=== PATIENT | male | born 1970 | race Two or more races ===

== ENCOUNTER 2016-06-06 19:37 | Emergency (ER) | payer SELFPAY ==
[~2016-06-06] VITALS: Ht 175.3 cm; Wt 90.7 kg
[2016-06-06] MEDS ORDERED: SODIUM CHLORIDE 0.9% 1,000 ML IV ONE (20:00)
[2016-06-06 20:12] LABS: Basophils # (auto) 0.1 uL; Basophils % (auto) 0.7 % (0.0-2.0); DEFINITIVE VIEW TRANSMISSION; Eosinophils # (auto) 0.1 uL; Eosinophils % (auto) 1.2 % (0.0-7.0); Hemoglobin 15.3 g/dL (13.5-17.5); Lymphocytes # (auto) 4.4 uL; Lymphocytes % (auto) 42.9 % (10.0-50.0); Mean Corpuscular Hemoglobin 26.9 pg (28.0-32.0); Mean Corpuscular Hgb Conc. 33.9 g/dL (32.0-36.0); Mean Corpuscular Volume 79.3 fL (80.0-100.0); Mean Platelet Volume 8.7 fL (7.4-10.4); Monocytes # (auto) 0.6 uL; Monocytes % (auto) 6.2 % (0.0-12.0); Platelet Count (auto) 370 10^3/uL (140-450); Red Cell Distribution Width 13.3 % (11.6-16.0); White Blood Cell 10.3 10^3/uL (4.4-10.8)
[2016-06-06] MEDS ORDERED: LORazepam 2MG/ML-1ML VIAL IV ONE (20:30)
[2016-06-06] MEDS ORDERED: HALOPERIDOL LACTATE 5 MG/ML INJ VIAL IM ONE (20:30)
[2016-06-06] MEDS ORDERED: diphenhdrAMINE HCL 50 MG/1 ML VL IV ONE (20:30)
[2016-06-06 20:49] LABS: Albumin 4.3 g/dL (3.4-5.0); BUN/Creatinine Ratio 9.8; Bilirubin, Total 0.3 mg/dL (0.2-1.0); Calcium 8.8 mg/dL (8.5-10.1); Potassium 3.8 mmol/L (3.5-5.1); Total Protein 8.1 g/dL (6.4-8.2)
[2016-06-06 20:52] LABS: Urine Bilirubin Negative (Negative); Urine Blood Negative /uL (Negative); Urine Color Yellow (Yellow); Urine Glucose Normal (Normal); Urine Ketone Negative (Negative); Urine Nitrite Negative (Negative); Urine RBC <1 /hpf (0 - 3); Urine Urobilinogen Normal (Negative)
[2016-06-06] MEDS ORDERED: DIAZEPAM 5 MG/ML 2ML SYRG IV ONE (22:30)
[2016-06-06] MEDS ORDERED: ETOMIDATE (2MG/ML) 20ML VIAL IV ONE (23:00)
[2016-06-07 01:00] VITALS: BP 131/76
[2016-06-07 11:16] LABS: Hepatitis B Surface Antibody Positive
== END 2016-06-07 01:27 ==
LOC: ER 19:52
DX: F10.10 Alcohol abuse, uncomplicated (principal); S01.21XA Laceration without foreign body of nose, initial encounter; F41.9 Anxiety disorder, unspecified; R42 Dizziness and giddiness; X58.XXXA Exposure to other specified factors, initial encounter; Y93.89 Activity, other specified; Y99.8 Other external cause status; Y92.89 Other specified places as the place of occurrence of the external cause
CPT/HCPCS: 12011; 36415; 70450; 80053; 80320; 81001; 85025; 86703; 86706; 86803; 87340; 96361; 96372; 96374; 96375; 99152; 99285; G0434; J1200; J1630; J2060; J3360; A4565